=== PATIENT | female | born 1935 | race Caucasian/White ===

== ENCOUNTER 2019-09-18 10:49 | Emergency (ER) | payer OTHER, MEDICARE ==
[~2019-09-18] VITALS: Ht 149.9 cm; Wt 47.6 kg
[2019-09-18 11:28] LABS: BASOPHILS % (AUTO) 0.5 % (0.0-2.0); EOSINOPHILS % (AUTO) 0.4 % (0.0-6.0); HEMATOCRIT 41 % (33-45); HEMOGLOBIN 13.5 g/dL (11.5-14.8); LYMPHOCYTES # (AUTO) 1.5 /CMM (0.8-4.8); LYMPHOCYTES % (AUTO) 18.6 % (20.0-44.0); MEAN CORPUSCULAR HGB CONC 33 g/dl (31.0-36.0); MEAN CORPUSCULAR VOLUME 93 fL (82-100); MONOCYTES # (AUTO) 0.5 /CMM (0.1-1.30); MONOCYTES % (AUTO) 6.8 % (2.0-12.0); NEUTROPHILS # (AUTO) 5.8 /CMM (1.8-8.9); NEUTROPHILS % (AUTO) 73.7 % (43.0-81.0); PLATELET COUNT (AUTO) 302 /CMM (150-450); RED BLOOD CELL COUNT(AUTO) 4.43 MIL/uL (4.0-5.2); WHITE BLOOD COUNT (AUTO) 7.8 K/uL (4.3-11.0)
[2019-09-18] MEDS ORDERED: IV NS 0.9% 500 ML BAG IV ONE (11:30)
--- NOTE | 2019-09-18 11:32 | NUR ---
PER FAMILY, PT IS CONTINENT, UNABLE TO GIVE URINE SAMPLE AT THIS TIME, STATES SHE JUST WENT TO BATHROOM BEFORE COMING IN
--- NOTE | 2019-09-18 11:32 | NUR ---
ASSUMED CARE OF PT; "BIBDAUGHTER, FROM HOME, CONFUSED THAN USUAL", PT ALERT, AWAKE, PT ON MONITOR, VSS, NAD NOTED
[2019-09-18 11:37] LABS: CALCIUM, SERUM 9.2 mg/dL (8.5-10.1); CARBON DIOXIDE 31 mmol/L (21-32); CHLORIDE 101 mmol/L (98-107); CREATININE 0.6 mg/dL (0.6-1.3); GLUCOSE 82 mg/dL (74-106); POTASSIUM 4.1 mmol/L (3.5-5.1); SODIUM SERUM 138 mmol/L (136-145); UREA NITROGEN, BLOOD 18 mg/dL (7-18)
[2019-09-18] MEDS ORDERED: ASPI-1152 PO (11:42)
[2019-09-18] MEDS ORDERED: MULT-24 PO (11:42)
[2019-09-18] MEDS ORDERED: AMLO1CAP93 PO (11:42)
--- NOTE | 2019-09-18 11:45 | NUR ---
PT WHEELED TO CT SCAN
[2019-09-18 11:50] LABS: ALANINE AMINOTRANSFERASE 29 U/L (12-78); ALBUMIN 3.7 g/dL (3.4-5.0); ALKALINE PHOSPHATASE 81 U/L (46-116); ASPARTATE AMINOTRANSFERASE 28 U/L (15-37); BILIRUBIN,DIRECT 0.2 mg/dL (0.0-0.2); BILIRUBIN,TOTAL 0.7 mg/dL (0.2-1.0); TOTAL PROTEIN, SERUM 7.7 g/dL (6.4-8.2)
--- NOTE | 2019-09-18 12:07 | NUR ---
URINE COLLECTED AND SENT TO LAB
[2019-09-18 12:15] LABS: APPEARANCE,URINE Clear (CLEAR); BILIRUBIN,URINE Negative (NEGATIVE); BLOOD, URINE Small Ery/uL (NEGATIVE); COLOR,URINE Yellow (YELLOW); KETONES,URINE Negative (NEGATIVE); LEUKOCYTE ESTERASE ,URINE Trace (NEGATIVE); NITRITE, URINE Negative (NEGATIVE); PROTEIN,URINE Negative (NEGATIVE); UGLUCOSE Negative (NEGATIVE); UROBILINOGEN,URINE 0.2 EU/dL (0.2)
[2019-09-18 12:18] LABS: BACTERIA,URINE Few /HPF (None Seen); SQUAMOUS EPITHELIAL CELL,UR Few /HPF (None Seen)
--- NOTE | 2019-09-18 12:44 | NUR ---
Patient discharged to home in stable condition. Written and verbal after care instructions given. Patient verbalizes understanding of instruction. IV removed. Catheter intact and site benign. Pressure and 4x4 applied to site. No bleeding noted.
[2019-09-18 12:46] VITALS: BP 169/90
== END 2019-09-18 12:47 | disposition home or self-care (01) ==
LOC: ER 10:57 → TELE 14:24 → UNDOADMIN 14:24 → UNDODISIN 14:25
DX: F03.90 Unspecified dementia, unspecified severity, without behavioral disturbance, psychotic disturbance, mood disturbance, and anxiety (principal); I10 Essential (primary) hypertension; R41.0 Disorientation, unspecified; Z79.82 Long term (current) use of aspirin; Z79.899 Other long term (current) drug therapy
CPT/HCPCS: 36415; 70450; 71045; 80048; 80076; 81001; 83605; 84145; 84484; 85025; 85730; 87040 ×2; 87086; 93005; 96360; 99284; J7040; 81000-TC; G0378

== ENCOUNTER 2021-02-23 16:49 | Inpatient (IN) | payer MEDICARE, OTHER ==
[~2021-02-23] VITALS: Ht 152.4 cm; Wt 45.4 kg
[~2021-02-23 16:49] MED LIST: AMLO1CAP93 PO; ASPI-1420 PO; MULT-24 PO
--- NOTE | 2021-02-23 16:49 | NUR ---
PT BIBRA 102 FROM HOME C/O FEVER AND MORE ALTERED THAN USUAL. PT IS AAOX1, NOT IN RESPIRATORY DISTRESS, HOOKED TO ASSOCIATE OF SCIENCE IN NURSING, KEPT RESTED AND COMFORTABLE. WILL CONTINUE TO MONITOR.
--- NOTE | 2021-02-23 16:55 | NUR ---
IV LINE ESTABLISHED BLOOD DRAWN AND SENT TO LAB.
--- NOTE | 2021-02-23 16:57 | NUR ---
SEEN AND EXAMINED BY .
[2021-02-23] MEDS ORDERED: PIPERACILLIN /TAZOBACTAM 3.375 G in IV D5W 50 ML IV ONE (17:00)
[2021-02-23] MEDS ORDERED: VANCOMYCIN 1 GM in IV D5W 250 ML IV ONE (17:00)
[2021-02-23] MEDS ORDERED: ACETAMINOPHEN 325 MG TABLET PO ONE (17:00)
[2021-02-23] MEDS ORDERED: IV NS 0.9% 1,000 ML BAG IV ONE (17:00)
--- NOTE | 2021-02-23 17:05 | NUR ---
URINE SPECIMEN COLLECTED AND SENT TO LAB.
[2021-02-23] MEDS ORDERED: ACETAMINOPHEN 325 MG TABLET ONE (17:12)
[2021-02-23 17:19] LABS: BASOPHILS % (AUTO) 0.3 % (0.0-2.0); HEMATOCRIT 40 % (33-45); HEMOGLOBIN 13.5 g/dL (11.5-14.8); LYMPHOCYTES # (AUTO) 0.4 /CMM (0.8-4.8); LYMPHOCYTES % (AUTO) 4.8 % (20.0-44.0); MEAN CORPUSCULAR HGB CONC 34 g/dl (31.0-36.0); MEAN CORPUSCULAR VOLUME 87 fL (82-100); MONOCYTES # (AUTO) 0.4 /CMM (0.1-1.30); MONOCYTES % (AUTO) 4.2 % (2.0-12.0); NEUTROPHILS # (AUTO) 8.4 /CMM (1.8-8.9); NEUTROPHILS % (AUTO) 90.7 % (43.0-81.0); PLATELET COUNT (AUTO) 270 /CMM (150-450); RED BLOOD CELL COUNT(AUTO) 4.62 MIL/uL (4.0-5.2); WHITE BLOOD COUNT (AUTO) 9.3 K/uL (4.3-11.0)
[2021-02-23] MEDS ORDERED: ASPI-1169 PO (17:25)
[2021-02-23] MEDS ORDERED: MEMA28CA5 PO (17:25)
[2021-02-23 17:27] LABS: BILIRUBIN,URINE NEGATIVE (NEGATIVE); COLOR,URINE YELLOW (YELLOW); LEUKOCYTE ESTERASE ,URINE NEGATIVE (NEGATIVE); NITRITE, URINE NEGATIVE (NEGATIVE); PROTEIN,URINE 30 mg/dl (NEGATIVE); UGLUCOSE NEGATIVE (NEGATIVE)
--- NOTE | 2021-02-23 17:37 | NUR ---
patient came back from ct
[2021-02-23 17:42] LABS: BACTERIA,URINE RARE /HPF (None Seen); RBC,URINE 21-50 /HPF (0-2); WBC,URINE 0-2 /HPF (0-3)
[2021-02-23 17:44] LABS: ALBUMIN 3.6 g/dL (3.4-5.0); BILIRUBIN,DIRECT 0.5 mg/dL (0.0-0.2); BILIRUBIN,TOTAL 1.1 mg/dL (0.2-1.0); CALCIUM, SERUM 9.1 mg/dL (8.5-10.1); CREATININE 0.6 mg/dL (0.6-1.3); POTASSIUM 3.7 mmol/L (3.5-5.1); TOTAL PROTEIN, SERUM 7.4 g/dL (6.4-8.2)
--- NOTE | 2021-02-23 18:09 | NUR ---
[facility] CALLED [facility]AG[facility].
[2021-02-23] MEDS ORDERED: CT SWABBABLE VALVE TRANS SET 1 EA INFUS.SET MC ONE (18:26)
[2021-02-23] MEDS ORDERED: IOHEXOL-300 100 ML VIAL IV ONE (18:26)
[2021-02-23] MEDS ORDERED: IV NS 0.9% 250 ML IV ONE (18:26)
--- NOTE | 2021-02-23 18:48 | NUR ---
GOT BED 110
[2021-02-23] MEDS ORDERED: HYDROCODONE/APAP 5/325MG TABLET PO PRN (19:00)
[2021-02-23] MEDS ORDERED: MAGNESIUM HYDROXIDE 30 ML UDC PO PRN (19:00)
[2021-02-23] MEDS ORDERED: Z GUARD REMEDY 2 OZ OINT TP PRN (19:00)
[2021-02-23] MEDS ORDERED: ONDANSETRON HCL/PF 4 MG/2 ML VIAL IVP PRN (19:00)
[2021-02-23] MEDS ORDERED: MAG HYDROX/AL HYDROX/SIMETH 30 ML UDC PO PRN (19:00)
[2021-02-23] MEDS ORDERED: ACETAMINOPHEN 325 MG TABLET PO PRN (19:00)
[2021-02-23] MEDS ORDERED: ZOLPIDEM TARTRATE 5 MG TABLET PO PRN (19:00)
--- NOTE | 2021-02-23 19:36 | NUR ---
Report given to Isabel HARVEY for jayla.
--- NOTE | 2021-02-23 19:37 | NUR ---
Wheeled patient via gurney accompanied by RN in no distress. RN at bedside to assume care.
--- NOTE | 2021-02-23 19:45 | NUR ---
RN OPENING NOTE ADMIT 85 YEAR OLD FEMALE TO [facility] AT ROOM 110 FROM ER,WITH DIAGNOSIS:SEPSIS UNDER MEDICAL SERVICE OF DR LOCKE,WITH HX OF DEMENTIA,HTN, COVID POSITIVE ON OCTOBER 2020, ALERT ORIENTED X2 VERBALLY RESPONSIVE,CYMRAES SPEAKER ONLY, FOLLOW DIRECTIONS,ON ROOM AIR O2:95% IV SITE IS ON RIGHT AC AND LEFT FOREARM INTACT PATENT,SAFETY MEASURE IMPLEMENT,CALL LIGHT WITHIN REACH,BED IN LOW POSITION AND LOCKED,BED ALARM IS ON,INCONTINET TO BOWEL/BLADDER,CONTINUE TO MONITOR.
[2021-02-23 20:00] VITALS: BP 133/69
[2021-02-23] MEDS: IV 1/2NS 1000 ML 1,000 ML IV PRN (20:03)
[2021-02-23] MEDS ORDERED: PIPERACILLIN /TAZOBACTAM 3.375 G VIAL IV ONE (23:34)
[2021-02-23] MEDS: ZOSYN IVPB 3.375 G in IV D5W 50ml IV SCH (23:45)
[2021-02-24] VITALS: BP 154/62
[2021-02-24 04:00] VITALS: BP 146/74
[2021-02-24] MEDS ORDERED: PIPERACILLIN /TAZOBACTAM 3.375 G VIAL IV ONE (05:04)
[2021-02-24] MEDS: ZOSYN IVPB 3.375 G in IV D5W 50ml IV SCH ×4 (05:09→23:26)
[2021-02-24 06:25] LABS: BASOPHILS % (AUTO) 0.5 % (0.0-2.0); HEMATOCRIT 40 % (33-45); HEMOGLOBIN 13.3 g/dL (11.5-14.8); LYMPHOCYTES # (AUTO) 0.6 /CMM (0.8-4.8); LYMPHOCYTES % (AUTO) 8.7 % (20.0-44.0); MEAN CORPUSCULAR HGB CONC 34 g/dl (31.0-36.0); MEAN CORPUSCULAR VOLUME 90 fL (82-100); MONOCYTES # (AUTO) 0.4 /CMM (0.1-1.30); MONOCYTES % (AUTO) 5.8 % (2.0-12.0); NEUTROPHILS # (AUTO) 5.8 /CMM (1.8-8.9); PLATELET COUNT (AUTO) 250 /CMM (150-450); RED BLOOD CELL COUNT(AUTO) 4.43 MIL/uL (4.0-5.2); WHITE BLOOD COUNT (AUTO) 6.9 K/uL (4.3-11.0)
--- NOTE | 2021-02-24 06:33 | NUR ---
RN CLOSING NOTE PATIENT REMAINS ON ALERT ORIENTED X2 VERBALLY RESPONSIVE ON ROOM AIR O2:98% NO SOB NOT ACUTE DISTRESS NOTED,IV SITE IS ON RIGHT AC AND LEFT FOREARM INTACT PATENT,IV 1/2 NS RUNNING 75 CC/HR,INCONTINENT TO BOWEL/BLADDER,ALL DUE MEDS GIVEN MD ORDERED KEPT CLEAN AND DRY ALL THE TIME,BED IN LOW POSITION AND LOCKED BED ALARM IS ON,KEPT CALL LIGHT WITHIN REACH,ENDORSE NEXT COMING SHIFT FOR CONTINUATION OF CARE.
[2021-02-24 06:49] LABS: ALBUMIN 2.9 g/dL (3.4-5.0); BILIRUBIN,DIRECT 0.6 mg/dL (0.0-0.2); BILIRUBIN,TOTAL 1.3 mg/dL (0.2-1.0); CALCIUM, SERUM 8.7 mg/dL (8.5-10.1); CREATININE 0.6 mg/dL (0.6-1.3); MAGNESIUM 2.2 mg/dL (1.8-2.4); PHOSPHORUS 3.8 mg/dL (2.5-4.9); POTASSIUM 3.6 mmol/L (3.5-5.1); TOTAL PROTEIN, SERUM 6.6 g/dL (6.4-8.2)
--- NOTE | 2021-02-24 07:30 | NUR ---
SUPERVISOR BRIDGES AND BUILDINGS OPENING NOTE [place]ER SPEAKING PT LAYING IN BED SEMIFOWLERS A/Ox1-2 AND DENIES PAIN PER [place] SPEAKING RN, BREATHING ON RA WITH NO SIGNS OF RESP DISTRESS OR SOB, SPO2 100%. PT HAS RAC #18 INFUSING 1/2 NS @ 75ML/HR, LFA #20 NS TKO. PT BILAT TOE FUNGI NOTED, WILL ORDER CONSULT. ALL PT SAFETY PRECAUTIONS IN PLACE, WILL CONT TO MONITOR
[2021-02-24 07:39] LABS: THYROID STIMULATING HORMONE 1.661 uIU/mL (0.358-3.74)
[2021-02-24 08:00] VITALS: BP 92/67
[2021-02-24] MEDS: IV 1/2NS 1000 ML 1,000 ML IV PRN (10:00)
[2021-02-24] MEDS: VANCOMYCIN 0.75 GM in IV D5W 250 ML IV SCH (10:03)
--- NOTE | 2021-02-24 10:45 | NUR ---
RN NOTE SPOKE WITH PT'S GRANDDAUGHTER AISHA AND ANWERED ALL QUESTIONS TO HER SATISFACTION REGARDING PT CARE PLAN
[2021-02-24 12:00] VITALS: BP 176/73
[2021-02-24] MEDS: NITROGLYCERIN 30 GM TUBE TP SCH ×2 (12:09→17:03)
[2021-02-24] MEDS: hydrALAZINE HCL 25 MG TABLET PO PRN (13:24)
[2021-02-24 16:00] VITALS: BP 152/81
--- NOTE | 2021-02-24 18:59 | NUR ---
RN CLOSING NOTE PT IN STABLE CONDITION, PT ON RA WITH NO SIGNS OF RESP DISTRESS OR SOB. PT HYPERTENSIVE FROM NOON ON, HYDRALAZINE PO 25MG GIVEN AT 1330 AND NITRO PATCH 1GRAM ADMINISTERED TWICE DURING SHIFT, HYDRALAZINE WILL BE DUE PRN FOR SBP >160. PT'S DAUGHTERS CAME TO VISIT AND HELPED WITH MRCP CONSENT, PT NPO UNTIL MRCP. ALL PT SAFETY MEASURES IN PLACE, WILL ENDORSE JENELLE TO ONCOMING RN
--- NOTE | 2021-02-24 19:35 | NUR ---
RN OPENING NOTE RECEIVED PATIENT IN BED RESTING ALERT ORIENTED X2 VERBALLY RESPONSIVE ON ROOM AIR, O2:98% NPO FOR TOMORROW PROCEDURE MRCP,IV SITE IS ON RIGHT AC AND LEFT FOREARM IV HYDRATION 1/2NS RUNNING 75CC/HR SAFETY MEASURE IMPLEMENT BED IN LOW POSITION AND LOCKED,BED ALARM IS ON CONTINUE TO MONITOR.
[2021-02-24 20:00] VITALS: BP 155/81
[2021-02-25] VITALS: BP 143/98
[2021-02-25] MEDS: IV 1/2NS 1000 ML 1,000 ML IV PRN ×2 (00:03→20:00)
[2021-02-25 04:00] VITALS: BP 141/66
[2021-02-25] MEDS: VANCOMYCIN 0.75 GM in IV D5W 250 ML IV SCH ×2 (04:32→23:02)
[2021-02-25] MEDS: ZOSYN IVPB 3.375 G in IV D5W 50ml IV SCH ×4 (05:13→23:34)
[2021-02-25 06:31] LABS: BASOPHILS # (AUTO) 0.1 /CMM (0.0-0.2); BASOPHILS % (AUTO) 0.8 % (0.0-2.0); EOSINOPHILS % (AUTO) 1.3 % (0.0-6.0); HEMATOCRIT 38 % (33-45); HEMOGLOBIN 12.9 g/dL (11.5-14.8); LYMPHOCYTES % (AUTO) 15.6 % (20.0-44.0); MEAN CORPUSCULAR HGB CONC 34 g/dl (31.0-36.0); MEAN CORPUSCULAR VOLUME 88 fL (82-100); MONOCYTES # (AUTO) 0.5 /CMM (0.1-1.30); MONOCYTES % (AUTO) 7.4 % (2.0-12.0); NEUTROPHILS # (AUTO) 4.6 /CMM (1.8-8.9); NEUTROPHILS % (AUTO) 74.9 % (43.0-81.0); PLATELET COUNT (AUTO) 271 /CMM (150-450); RED BLOOD CELL COUNT(AUTO) 4.37 MIL/uL (4.0-5.2); WHITE BLOOD COUNT (AUTO) 6.1 K/uL (4.3-11.0)
--- NOTE | 2021-02-25 06:43 | NUR ---
RN CLOSING NOTE PATIENT REMAINS ON ALERT ORIENTED X2 VERBALLY RESPONSIVE ON NPO FOR TODAY PROCEDURE MRI ON ROOM AIR O2:98% NO SOB NOT ACUTE DISTRESS NOTED,ON IV HYDRATION 1/2NS 75CC/HR ALL IV ATB GIVEN MD ORDERED,IV SITE IS ON RIGHT AC AND LEFT FOREARM INTACT PATENT. KEPT CLEAN AND DRY ALL THE TIME,KEPT COMFORTABLE ALL NEEDS MET ENDORSE NEXT COMING SHIFT FOR CONTINUATION OF CARE
[2021-02-25 07:15] LABS: ALANINE AMINOTRANSFERASE 229 U/L (12-78); ALBUMIN 2.9 g/dL (3.4-5.0); ALKALINE PHOSPHATASE 228 U/L (46-116); ASPARTATE AMINOTRANSFERASE 97 U/L (15-37); BILIRUBIN,TOTAL 0.7 mg/dL (0.2-1.0); CALCIUM, SERUM 8.5 mg/dL (8.5-10.1); CARBON DIOXIDE 26 mmol/L (21-32); CHLORIDE 102 mmol/L (98-107); CREATININE 0.8 mg/dL (0.6-1.3); GLUCOSE 103 mg/dL (74-106); PHOSPHORUS 3.4 mg/dL (2.5-4.9); POTASSIUM 3.1 mmol/L (3.5-5.1); SODIUM SERUM 136 mmol/L (136-145); TOTAL PROTEIN, SERUM 6.6 g/dL (6.4-8.2); UREA NITROGEN, BLOOD 11 mg/dL (7-18)
--- NOTE | 2021-02-25 07:30 | NUR ---
PLUMBING WAREHOUSE HELPER OPENING NOTE CANADIAN SPEAKING PT TRYING TO GET UP OUT OF BED AGAINST NURSES WISHES. PER CANADIAN SPEAKING CHROME TANNER RN, PT HAS BEEN AGITATED AND NON-COMPLIANT. WILL MOVE PT TO A ROOM CLOSER TO NURSING STATION TO MONITOR MORE CLOSELY. PT DENIES PAIN, BREATHING ON RA WITH NO SIGNS OF RESP DISTRESS OR SOB, SPO2 98%. PT HAS RAC #18 INFUSING 1/2 NS @ 75ML/HR, LFA #20 HAS BEEN PULLED OUT BY PT, NO SIGNS OF BLEEDING TO SITE. PT BILAT TOE FUNGI NOTED, WOUND CONSULT ALREADY ORDERED FOR TODAY. ALL PT SAFETY PRECAUTIONS IN PLACE, WILL CONT TO MONITOR
[2021-02-25 08:00] VITALS: BP 194/79
[2021-02-25] MEDS: hydrALAZINE HCL 25 MG TABLET PO PRN (08:21)
[2021-02-25] MEDS: NITROGLYCERIN 30 GM TUBE TP SCH ×2 (08:21→18:18)
--- NOTE | 2021-02-25 08:39 | NUR ---
WOUND CARE CONSULT: PT SEEN FOR LONG CURLING GREAT TOENAILS, PRESENT ON ADMISSION. RECOMMEND DPM CONSULT. DR PULLIAM NOTIFIED OF CONSULT REQUEST. PT IS INCONTINENT. MD IN AGREEMENT WITH PLAN OF CARE.
--- NOTE | 2021-02-25 08:58 | NUR ---
RN NOTE PT REFUSED TO TAKE PO HYDRALAZINE FOR HTN, PT IS CONFUSED AND AGITATED, KICKING AND TRYING TO PULL OUT LINES. DR BROOKE PLACED RESTRAINT ORDER AND CLONIDINE TTS 3 PATCH ORDER
--- NOTE | 2021-02-25 09:50 | NUR ---
PATIENT SEEN AND EVALUATED BY DR. MCCORD,UPDATED PATIENT UNABLE TO DO MRCP SECONDARY TO CONFUSION AND UNABLE TO LAY STILL,FALL RISK,INITIATED RESTRAINT FOR SAFETY.
[2021-02-25] MEDS: BENAZEPRIL HCL 20 MG TABLET PO SCH (10:00)
[2021-02-25] MEDS: AMLODIPINE BESYLATE 10 MG TABLET PO SCH (10:00)
[2021-02-25] MEDS ORDERED: CLONIDINE HCL 0.3 MG/24H PTWK 1 EA PATCH TD SCH (10:00)
--- NOTE | 2021-02-25 10:34 | NUR ---
PT UNABLE TO TAKE ANY NPO MED PT IS AGITATED, CONFUSED, AND NON-COMPLIANT
[2021-02-25 12:00] VITALS: BP 191/91
[2021-02-25] MEDS: POTASSIUM CHLORIDE 20 MEQ TAB.PRT.SR PO SCH ×2 (12:00→13:00)
[2021-02-25] MEDS ORDERED: HALOPERIDOL LACTATE INJ 5 MG/ML VIAL IM ONE (13:30)
[2021-02-25 16:00] VITALS: BP 218/163
[2021-02-25] MEDS ORDERED: hydrALAZINE HCL IV 20 MG VIAL IV STA (16:03)
[2021-02-25] MEDS ORDERED: hydrALAZINE HCL IV 20 MG VIAL IV PRN (16:30)
[2021-02-25] MEDS: MEMANTINE HCL 5 MG TABLET PO SCH (17:00)
--- NOTE | 2021-02-25 17:00 | NUR ---
RN NOTE PT 1600 BP OF 218/163 NOTED, DR MCCORD CALLED IMMEDIATELY, 20MG IV HYDRALAZINE ORDERED, ADMINISTERED AT 1630. PT BP NOW 124/78. PRN 20MG HYDRALAZINE IV ORDERED FOR SBP >160 Q6H
[2021-02-25] MEDS: CLOTRIMAZOLE 1% 15 GM TUBE TP SCH (18:17)
--- NOTE | 2021-02-25 19:00 | NUR ---
RN NOTE PT CONSENTS FOR ERCP AND BILATERAL TOE DEBRIDEMENT SIGNED IN PERSON BY PT'S DAUGHTER/MEDICAL DECISION-MAKER ZOË. PT MORE CALM AND RELAXED COMPARED TO ENTIRE SHIFT. PT ON RA WITH SPO2 OF 98%, NO SIGNS OF RESP DEPRESSION OR SOB. PER PT DAUGHTER, PT DENIES ANY PAIN. ALL PT SAFETY MEASURES IN PLACE, WILL ENDOSRE JENELLE TO ONCOMING RN
--- NOTE | 2021-02-25 19:30 | NUR ---
RN OPENING NOTES: RECEIVED PT A/OX1-2 IN BED RESTING COMFORTABLY. PATIENT IN NO S/SX OF ACUTE DISTRESS AT THIS TIME. NO SOB NOTED. PATIENT'S BREATHING IS EVEN AND UNLABORED. PATIENT IS ON ROOM AIR TOLERATING WELL WITH 02 SAT OF 100% AT THE TIME OF RECEIVED. PATIENT ON TELE MONITORING READING SINUS TACHY HR IS @100 AT THE TIME OF RECEIVED. NO RESIDUAL NOTED; CLAMPED PATIENT ON NPO EXCEPT MEDS DIET; IN PREPARATION FOR ERCP YESSENIA MORNING. NOTED IV SITE ON R FA#20;PATENT, INTACT AND FLUSHING WELL; NO S/S OF INFECTION OR INFILTRATION. WITH IV FLUID RUNNING ORDERED. BILATERAL SOFT WRIST RESTRAINTS IN PLACE, ASSESSED PER PROTOCOL. SAFETY MEASURES HAVE BEEN PROVIDED AND IMPLEMENTED. PATIENT BED ALARM IS ON. HEAD OF BED ELEVATED. BED IS LOCKED, IN LOWEST POSITION AND SIDE RAILS UP. CALL LIGHT WITHIN REACH OF THE PATIENT. APPLICABLE ISOLATION PRECAUTIONS IN PLACE. WILL CONTINUE TO MONITOR AND REASSESS FOR ANY CHANGES AND WILL CARRY OUT ANY ONGOING AND ACTIVE MD ORDER.
[2021-02-25 20:00] VITALS: BP 114/66
--- NOTE | 2021-02-25 23:00 | NUR ---
RN NOTES FACILITATED INSERTION OF IV ACCESS/LINE @ R HAND #22. SKID WRAPPER MADE AWARE. WILL CONTINUE TO MONITOR AND ASSESS
--- NOTE | 2021-02-25 23:30 | NUR ---
RN NOTES NO CHANGE IN PATIENT CONDITION AT THIS TIME PATIENT VITALS STABLE, NO SIGNS OF ACUTE RESPIRATORY DISTRESS. SLOT FLOOR SUPERVISOR MADE AWARE. WILL CONTINUE TO MONITOR AND REASSESS FOR ANY CHANGES THROUGHOUT THE SHIFT.
[2021-02-26] VITALS: BP 112/74
--- NOTE | 2021-02-26 03:00 | NUR ---
RN NOTES PATIENT REMAINS IN NO ACUTE RESPIRATORY DISTRESS AT THIS TIME, NO CHANGES TO CONDITION/STATUS. PATIENT CARE DONE. GEAR SHAPER WELL AWARE. WILL CONTINUE TO MONITOR AND REASSESS FOR ANY CHANGES THROUGHOUT THE SHIFT
[2021-02-26 04:00] VITALS: BP 112/70
[2021-02-26] MEDS: ZOSYN IVPB 3.375 G in IV D5W 50ml IV SCH ×2 (05:01→12:31)
[2021-02-26 06:31] LABS: BASOPHILS % (AUTO) 0.4 % (0.0-2.0); EOSINOPHILS % (AUTO) 0.4 % (0.0-6.0); HEMATOCRIT 42 % (33-45); HEMOGLOBIN 14.3 g/dL (11.5-14.8); LYMPHOCYTES # (AUTO) 1.2 /CMM (0.8-4.8); LYMPHOCYTES % (AUTO) 13.3 % (20.0-44.0); MEAN CORPUSCULAR HGB CONC 34 g/dl (31.0-36.0); MEAN CORPUSCULAR VOLUME 88 fL (82-100); MONOCYTES # (AUTO) 0.9 /CMM (0.1-1.30); MONOCYTES % (AUTO) 9.5 % (2.0-12.0); NEUTROPHILS # (AUTO) 6.9 /CMM (1.8-8.9); NEUTROPHILS % (AUTO) 76.4 % (43.0-81.0); PLATELET COUNT (AUTO) 321 /CMM (150-450); RED BLOOD CELL COUNT(AUTO) 4.81 MIL/uL (4.0-5.2)
--- NOTE | 2021-02-26 06:55 | NUR ---
RN CLOSING NOTE: PATIENT REMAINS IN ROOM IN NO SIGNS OF RESPIRATORY DISTRESS, PATIENT STILL ON ROOM AIR; TOLERATING WELL SATURATING @ >95% SP02. SAFETY MEASURES IMPLEMENTED, BED IN LOWEST POSITION, LOCKED, SIDE RAILS UP, CALL LIGHT WITHIN REACH. ALL NEEDS AND ORDERS ADDRESSED DURING THE SHIFT. IV ACCESS MAINTAINED INTACT, SECURED AND FLUSHING WELL. ALL DUE MEDS GIVEN ORDERED & SCHEDULED ; PATIENT TOLERATED WELL. PATIENT KEPT CLEAN AND COMFORTABLE WITHIN THE SHIFT. PATIENT ENDORSED TO INCOMING SHIFT RN WITH STABLE VITAL SIGN AND FOR CONTINUITY OF CARE, ALSO TO ADVISE INCOMING RN ABOUT PT'S PROCEDURE TODAY (ERCP AND WOUND DEBRIDEMENT; ALL PAPERWORK, CONSENT SECURED AND PLACED IN THE CHART. TELECOMMUNICATIONS EQUIPMENT INSTALLER WELL AWARE.
--- NOTE | 2021-02-26 07:00 | NUR ---
PATIENT RELEASED FROM RESTRAINT.TRIED TO PULL IV OUT AND GETTING OUT OF BED.FALL RISK PRECAUTION OBSERVED.
[2021-02-26 07:25] LABS: CALCIUM, SERUM 8.9 mg/dL (8.5-10.1); CREATININE 0.8 mg/dL (0.6-1.3); POTASSIUM 2.9 mmol/L (3.5-5.1)
--- NOTE | 2021-02-26 07:30 | NUR ---
RN OPENING NOTE LIBERIAN SPEAKING PT TRESTING COMFORTABLY IN BED AGAINST. PT MORE COMPLIANT THAN YESTERDAY. PT DENIES PAIN, BREATHING ON RA WITH NO SIGNS OF RESP DISTRESS OR SOB, SPO2 95%. PT HAS RFA #20 INFUSING 1/2 NS @ 75ML/HR AND IS INTACT WITH NO S/S OF INFILTRATION/INFECTION, RT HAND NOT INTACT WILL D/C. NO SIGNS OF BLEEDING TO SITE. PT DUE TO GET BILAT TOE TOE DEBRIDEMENT NOTED, AND ERCP TODAY.PT K+ 2.9, DR MCCORD AWARE. ALL PT SAFETY PRECAUTIONS IN PLACE, WILL CONT TO MONITOR
[2021-02-26 08:00] VITALS: BP 156/84
[2021-02-26] MEDS ORDERED: POTASSIUM CL. PREMIX PERIPHER. 50 ML IV SCH ×2 (08:00→08:30)
[2021-02-26 08:03] LABS: ALBUMIN 3.1 g/dL (3.4-5.0); BILIRUBIN,DIRECT 0.3 mg/dL (0.0-0.2); BILIRUBIN,TOTAL 0.9 mg/dL (0.2-1.0)
[2021-02-26] MEDS ORDERED: Potassium Chloride 20 MEQ in IV D5/0.45 NACL 1,000 ML IV PRN (08:30)
[2021-02-26] MEDS: POTASSIUM CL. PREMIX PERIPHER. 50 ML IV SCH ×2 (08:31→10:25)
[2021-02-26] MEDS: AMLODIPINE BESYLATE 10 MG TABLET PO SCH (08:31)
[2021-02-26] MEDS: MEMANTINE HCL 5 MG TABLET PO SCH (08:31)
[2021-02-26] MEDS: CLOTRIMAZOLE 1% 15 GM TUBE TP SCH (08:32)
[2021-02-26] MEDS: NITROGLYCERIN 30 GM TUBE TP SCH (08:34)
[2021-02-26] MEDS ORDERED: ASPIRIN 81 MG TAB.CHEW PO SCH (09:00)
[2021-02-26] MEDS ORDERED: MULTIVITAMINS,THERAGRAN 1 UDTAB TABLET PO SCH (09:00)
--- NOTE | 2021-02-26 09:29 | NUR ---
PATIENT PLACED BACK ON SOFT RESTRAINTS FOR SAFETY PER MD ORDER.
[2021-02-26] MEDS: BENAZEPRIL HCL 20 MG TABLET PO SCH (11:03)
[2021-02-26 12:00] VITALS: BP 104/70
--- NOTE | 2021-02-26 12:48 | NUR ---
patient off restraint granddaughter at bedside waiting for dr. rizzo call back.pt. sitting at bedside .
[2021-02-26] MEDS ORDERED: POTASSIUM CHLORIDE 20 MEQ TAB.PRT.SR PO ONE (13:30)
--- NOTE | 2021-02-26 14:30 | NUR ---
RN NOTE PLACED PT BACK ON RESTRAINTS FAMILY IS NO LONGER WITH PT. PT CURRENTLY ASLEEP Addendum: 02/26/21 at 1629 by ANDREA ELDER RN PT REFUSED TO COMPLY WITH URINALYSIS COLLECTION, WILL TRY AGAIN LATER
[2021-02-26] MEDS ORDERED: METR-147 PO (14:59)
[2021-02-26] MEDS ORDERED: CIPR-262 PO (14:59)
[2021-02-26] MEDS ORDERED: VANCOMYCIN 1 GM in IV D5W 250 ML IV SCH (15:00)
[2021-02-26 16:00] VITALS: BP 110/54
--- NOTE | 2021-02-26 18:30 | NUR ---
RN NOTE PT DISCHARGED IN STABLE CONDITION WITH FAMILY
== END 2021-02-26 18:20 | disposition home or self-care (01) | DRG 871 ==
LOC: ER 16:55 → TELE1 18:53 → MEDSG1 02-26 07:59
PROVIDERS: ADMIT Student in an Organized Health Care Education/Training Program; ATTEND Internal Medicine
DX: A41.9 Sepsis, unspecified organism (principal); I21.A1 Myocardial infarction type 2; G93.41 Metabolic encephalopathy; J18.9 Pneumonia, unspecified organism; E87.1 Hypo-osmolality and hyponatremia; F03.90 Unspecified dementia, unspecified severity, without behavioral disturbance, psychotic disturbance, mood disturbance, and anxiety; Z20.822 Contact with and (suspected) exposure to COVID-19; Z86.73 Personal history of transient ischemic attack (TIA), and cerebral infarction without residual deficits; I10 Essential (primary) hypertension; Z86.16 Personal history of COVID-19; Z79.82 Long term (current) use of aspirin; Z79.899 Other long term (current) drug therapy; F09 Unspecified mental disorder due to known physiological condition; R74.01 Elevation of levels of liver transaminase levels; I70.0 Atherosclerosis of aorta; I67.2 Cerebral atherosclerosis; K80.50 Calculus of bile duct without cholangitis or cholecystitis without obstruction; L60.2 Onychogryphosis; E27.8 Other specified disorders of adrenal gland; E87.6 Hypokalemia
CPT/HCPCS: 36415; 70450-TC; 71045-TC; 74181-TC; 76700-TC; 80048-TC; 80053-TC; 80061-TC; 80076-TC; 80202-TC; 81001; 82140-TC; 83605-TC; 83735-TC; 84100-TC; 84443-TC; 84484-TC; 85025-TC; 85730-TC; 87040-TC; 87081-TC; 87086-TC; 93307-TC; C9803; G0378; J0360; J1630; J2543; J3370; J3480; J3490; J7050; J7060; Q9967